=== PATIENT | male | born 1990 | race Caucasian/White ===

== ENCOUNTER 2019-10-29 14:16 | Emergency (ER) | payer SELFPAY ==
[~2019-10-29] VITALS: Ht 152.4 cm; Wt 57.0 kg
[2019-10-29 14:24] VITALS: TEMP 98.9
[2019-10-29] MEDS ORDERED: NORCO 325 MG-51 TAB PO (15:11)
[2019-10-29] MEDS ORDERED: CRUTCHES MC (15:12)
[2019-10-29 15:35] VITALS: BP 128/86; PULSE 82
== END 2019-10-29 15:35 | disposition home or self-care (01) ==
LOC: COL.ER 14:16
DX: S93.401A Sprain of unspecified ligament of right ankle, initial encounter (principal); W19.XXXA Unspecified fall, initial encounter; X50.1XXA Overexertion from prolonged static or awkward postures, initial encounter